=== PATIENT | male | born 1950 | race Caucasian/White ===

== ENCOUNTER 2016-10-09 08:08 | Day surgery (SDC) | payer MEDICARE, OTHER ==
[~2016-10-09 08:08] MED LIST: DIPHENHYDRAMINE HCL 50 MG/ML VIAL ONE; EPINEPHRINE INJ 1 MG/10 ML DISP.SYRIN ONE; FLUMAZENIL INJ 0.5 MG/5 ML VIAL IV ONE; GLUCAGON,HUMAN RECOMB 1 MG INJ ONE; NALOXONE HCL INJ/PF 0.4 MG/1 ML SDV ONE; ONDANSETRON HCL INJ/PF 4 MG/2 ML SDV ONE
[2016-10-09] MEDS: MIDAZOLAM 2 MG/2 ML INJ ONE ×4 (08:27→08:40)
[2016-10-09] MEDS: FENTANYL CITRATE INJ/PF 100 MCG/2 ML AMPUL ONE ×2 (08:29→08:38)
--- NOTE | 2016-10-09 09:03 | Operative Report ---
Operative Report DATE OF SURGERY: 10/09/16 Operative Report: The risks, benefits and alternatives of the procedure including risks of bleeding, perforation requiring surgery are explained to the patient detail and informed consent is obtained. Patient was taken to the endoscopy suite and placed in a left, lateral decubital position. A rectal examination was done which did not reveal any masses tears or fissures. Timeout is called. Conscious sedation medications are provided. The scope was then gradually advanced all the way to the cecum. The cecum as identified by the usual anatomical landmarks including the ileocecal valve as well as the appendiceal office. Photodocumentation was obtained. The scope was then sequentially pulled back via the rest segments of the colon including the ascending colon, hepatic flexure, transverse colon, splenic flexure, descending colon and finally into the rectosigmoid colon. Retroflexion maneuvers performed. There is some redundancy,/possible hernia in the area of the splenic flexure that required the application of abdominal pressure to advance the scope to the right side of the colon. PREOPERATIVE DIAGNOSIS: Colorectal cancer screening. POSTOPERATIVE DIAGNOSIS: Polyp at hepatic flexure removed via snare polypectomy. Diverticulosis. Internal hemorrhoids. Possible lipoma OPERATION: Colonoscopy with snare polypectomy SURGEON: MONICA JENKINS ANESTHESIA: Moderate Sedation - 5 mg of Versed, 75 g of fentanyl. Conscious sedation monitoring time is 30 minutes. TISSUE REMOVED OR ALTERED: Colon polyp retrieved. COMPLICATIONS: None. ESTIMATED BLOOD LOSS: none. INTRAOPERATIVE FINDINGS: As noted above. PROCEDURE: Patient tolerated the procedure well. No immediate postprocedure complications are noted. Patient is discharged in good condition. Discharge date 10/09/2016. Discharge diet: Regular. Discharge activity: Regular. 2-3 week follow-up to discuss findings. Patient is instructed to call the office should there be any further problems or questions. Five-year surveillance colonoscopy. We'll await on biopsies.
[2016-10-09 09:56] VITALS: BP 125/73
== END 2016-10-09 09:55 | disposition home or self-care (01) ==
LOC: END 08:08
PROVIDERS: ATTEND Internal Medicine Gastroenterology
PROC: 0DBK8ZX Excision of Ascending Colon, Via Natural or Artificial Opening Endoscopic, Diagnostic (ICD-10-PCS; principal; 2016-10-09 08:30)
DX: Z12.11 Encounter for screening for malignant neoplasm of colon (principal); K63.5 Polyp of colon; K57.30 Diverticulosis of large intestine without perforation or abscess without bleeding; K64.8 Other hemorrhoids; I10 Essential (primary) hypertension; G40.909 Epilepsy, unspecified, not intractable, without status epilepticus; E78.5 Hyperlipidemia, unspecified; Z86.73 Personal history of transient ischemic attack (TIA), and cerebral infarction without residual deficits; Z79.899 Other long term (current) drug therapy; Z79.82 Long term (current) use of aspirin
CPT/HCPCS: 45385; 88305 ×2; J2250; J3010; J0171; J1200; J1610; J2310; J2405; J3490

== ENCOUNTER → 2016-10-31 | Outpatient (CLI) | payer MEDICARE, OTHER ==
[2016-10-31 14:44] LABS: ABSOLUTE BASOPHILS # (AUTO) 0.1 10^3/uL (0.0-0.2); ABSOLUTE EOSINOPHILS # (AUTO) 0.2 10^3/uL (0.0-0.6); ABSOLUTE LYMPHOCYTES (AUTO) 2.1 10^3/uL (0.5-4.7); ABSOLUTE MONOCYTES (AUTO) 0.5 10^3/uL (0.1-1.4); ABSOLUTE NEUT (AUTO) 4.5 10^3/uL (1.7-8.2); BASOPHILS % (AUTO) 1.2 % (0-2); EOSINOPHILS % (AUTO) 3.1 % (0-6); HEMATOCRIT 36.4 % (37.9-51.0); HEMOGLOBIN 12.5 g/dL (13.5-17.0); HGB HCT DIFFERENCE 1.1; LYMPHOCYTES % (AUTO) 27.9 % (13-45); MEAN CORPUSCULAR HEMOGLOBIN 30.1 pg (27.0-33.4); MEAN CORPUSCULAR HGB CONC 34.5 g/dL (32.0-36.0); MEAN CORPUSCULAR VOLUME 87 fl (80-97); MONOCYTES % (AUTO) 6.9 % (3-13); RED BLOOD COUNT 4.17 10^6/uL (4.35-5.55); RED CELL DISTRIBUTION WIDTH 13.5 % (11.5-14.0); SEGMENTED NEUTROPHILS % (AUTO) 60.9 % (42-78); WHITE BLOOD COUNT 7.4 10^3/uL (4.0-10.5)
[2016-10-31 14:45] LABS: PROTHROMBIN TIME 13.5 SEC (11.4-15.4)
[2016-10-31 14:46] LABS: PARTIAL THROMBOPLASTIN TIME 32.3 SEC (23.5-35.8)
[2016-10-31 15:09] LABS: ANION GAP 13 (5-19); BLOOD UREA NITROGEN 13 mg/dL (7-20); CARBON DIOXIDE 23 mmol/L (22-30); CHLORIDE 104 mmol/L (98-107); CREATININE RESULT 0.82 mg/dL (0.52-1.25); GLUCOSE 112 mg/dL (75-110); MAGNESIUM 1.7 mg/dL (1.6-2.3); POTASSIUM 3.9 mmol/L (3.6-5.0); SODIUM 139.5 mmol/L (137-145)
== END ==
LOC: OD 13:47
PROVIDERS: ATTEND Internal Medicine
DX: R07.2 Precordial pain (principal); I10 Essential (primary) hypertension; E78.4 Other hyperlipidemia; Z79.899 Other long term (current) drug therapy; I05.9 Rheumatic mitral valve disease, unspecified; G40.909 Epilepsy, unspecified, not intractable, without status epilepticus
CPT/HCPCS: 36415; 80051; 82565; 82947; 83735; 84520; 85025; 85610; 85730

== ENCOUNTER → 2017-05-12 | Outpatient (CLI) | payer MEDICARE, OTHER ==
[2017-05-12 10:41] LABS: ABSOLUTE EOSINOPHILS # (AUTO) 0.3 10^3/uL (0.0-0.6); ABSOLUTE LYMPHOCYTES (AUTO) 1.8 10^3/uL (0.5-4.7); ABSOLUTE MONOCYTES (AUTO) 0.4 10^3/uL (0.1-1.4); ABSOLUTE NEUT (AUTO) 4.3 10^3/uL (1.7-8.2); BASOPHILS % (AUTO) 0.7 % (0-2); HEMATOCRIT 39.4 % (37.9-51.0); HEMOGLOBIN 13.5 g/dL (13.5-17.0); MEAN CORPUSCULAR HEMOGLOBIN 29.1 pg (27.0-33.4); MEAN CORPUSCULAR HGB CONC 34.3 g/dL (32.0-36.0); MEAN CORPUSCULAR VOLUME 85 fl (80-97); MONOCYTES % (AUTO) 6.3 % (3-13); PLATELET COUNT 228 10^3/uL (150-450); RED BLOOD COUNT 4.64 10^6/uL (4.35-5.55); RED CELL DISTRIBUTION WIDTH 13.3 % (11.5-14.0); TOTAL CELLS COUNTED % (AUTO) 100 %; WHITE BLOOD COUNT 6.8 10^3/uL (4.0-10.5)
[2017-05-12 11:16] LABS: ALANINE AMINOTRANSFERASE 30 U/L (21-72); ALBUMIN 4.1 g/dL (3.5-5.0); ALKALINE PHOSPHATASE 98 U/L (38-126); ANION GAP 11 (5-19); ASPARTATE AMINO TRANSFERASE 29 U/L (17-59); BILIRUBIN,DIRECT 0.4 mg/dL (0.0-0.4); BILIRUBIN,TOTAL 0.9 mg/dL (0.2-1.3); BLOOD UREA NITROGEN 11 mg/dL (7-20); CALCIUM 9.4 mg/dL (8.4-10.2); CARBON DIOXIDE 29 mmol/L (22-30); CHLORIDE 103 mmol/L (98-107); CHOLESTEROL 155.56 mg/dL (0-200); GLUCOSE 116 mg/dL (75-110); POTASSIUM 4.6 mmol/L (3.6-5.0); SODIUM 142.6 mmol/L (137-145); TOTAL PROTEIN 6.6 g/dL (6.3-8.2); TRIGLYCERIDES 123 mg/dL (<150)
[2017-05-12 11:26] LABS: DIRECT LDL 88 mg/dL (<100)
== END ==
LOC: OD 09:44
PROVIDERS: ATTEND Family Medicine Geriatric Medicine
DX: I10 Essential (primary) hypertension (principal); E78.5 Hyperlipidemia, unspecified; G40.909 Epilepsy, unspecified, not intractable, without status epilepticus; I25.10 Atherosclerotic heart disease of native coronary artery without angina pectoris; I63.9 Cerebral infarction, unspecified; R73.9 Hyperglycemia, unspecified; Z79.899 Other long term (current) drug therapy
CPT/HCPCS: 36415; 80053; 80061; 84153; 84443; 85025

== ENCOUNTER → 2017-07-18 | Outpatient (CLI) | payer MEDICARE, OTHER ==
--- NOTE | 2017-07-18 10:18 | RADIOLOGY REPORT (SQ) ---
EXAM DESCRIPTION: CHEST PA/LATERAL COMPLETED DATE/TIME: 07/18/2017 9:18 am REASON FOR STUDY: COUGH COMPARISON: 08/16/2015 EXAM PARAMETERS: NUMBER OF VIEWS: two views TECHNIQUE: Digital Frontal and Lateral radiographic views of the chest acquired. RADIATION DOSE: NA LIMITATIONS: none FINDINGS: LUNGS AND PLEURA: No opacities, masses or pneumothorax. No pleural effusion. MEDIASTINUM AND HILAR STRUCTURES: No masses or contour abnormalities. HEART AND VASCULAR STRUCTURES: Heart normal size. No evidence for failure. BONES: No acute findings. HARDWARE: None in the chest. OTHER: No other significant finding. IMPRESSION: NO SIGNIFICANT RADIOGRAPHIC FINDING IN THE CHEST. TECHNICAL DOCUMENTATION: JOB ID: [id number] [employer]- All Rights Reserved
== END ==
LOC: OD 08:37
PROVIDERS: ATTEND Family Medicine Geriatric Medicine
DX: I10 Essential (primary) hypertension (principal); R05 Cough; E78.5 Hyperlipidemia, unspecified; R73.9 Hyperglycemia, unspecified; Z79.899 Other long term (current) drug therapy
CPT/HCPCS: 36415; 71046; 82947; 82950; 83036

== ENCOUNTER → 2017-09-03 | Outpatient (CLI) | payer MEDICARE, OTHER ==
[2017-09-03 09:01] LABS: ALANINE AMINOTRANSFERASE 32 U/L (21-72); ANION GAP 8 (5-19); ASPARTATE AMINO TRANSFERASE 29 U/L (17-59); BLOOD UREA NITROGEN 14 mg/dL (7-20); CALCIUM 9.5 mg/dL (8.4-10.2); CARBON DIOXIDE 30 mmol/L (22-30); CHLORIDE 102 mmol/L (98-107); CHOLESTEROL 125.97 mg/dL (0-200); GLUCOSE 122 mg/dL (75-110); POTASSIUM 5.1 mmol/L (3.6-5.0); SODIUM 140.3 mmol/L (137-145); TRIGLYCERIDES 130 mg/dL (<150)
[2017-09-03 09:12] LABS: DIRECT LDL 65 mg/dL (<100)
[2017-09-04 11:40] LABS: CREATININE URINE 193.9 mg/dL (Not Estab.)
== END ==
LOC: OD 07:22
PROVIDERS: ATTEND Family Medicine Geriatric Medicine
DX: E11.9 Type 2 diabetes mellitus without complications (principal); E78.5 Hyperlipidemia, unspecified; I10 Essential (primary) hypertension; Z79.899 Other long term (current) drug therapy
CPT/HCPCS: 36415; 80048; 80061; 82043; 82570; 83036; 84450; 84460

== ENCOUNTER → 2017-09-08 | Outpatient (CLI) | payer MEDICARE, OTHER | LOC: OD 09:53 | PROVIDERS: ATTEND Family Medicine Geriatric Medicine | DX: E87.5 Hyperkalemia (principal) | CPT/HCPCS: 36415; 84132 ==

== ENCOUNTER → 2017-11-14 | Outpatient (CLI) | payer MEDICARE, OTHER ==
--- NOTE | 2017-11-14 12:11 | WOMENS IMAGING REPORT ---
EXAM DESCRIPTION: BILAT DIAGNOSTIC MAMMO W/CAD; U/S BREAST UNILAT LIMITED COMPLETED DATE/TIME: 11/14/2017 9:56 am; 11/14/2017 11:36 am REASON FOR STUDY: HYPERTROPHY OF BREAST; N62; LT BREAST N62 N62 HYPERTROPHY OF BREAST COMPARISON: None. TECHNIQUE: Standard craniocaudal and mediolateral oblique views of each breast recorded using digita l acquisition. Additional true lateral image of the left breast acquired. LIMITATIONS: None. FINDINGS: RIGHT BREAST MASSES: No suspicious masses. CALCIFICATIONS: No new or suspicious calcifications. ARCHITECTURAL DISTORTION: None. DEVELOPING DENSITY: None. ASYMMETRY: None noted. OTHER: No other significant findings. LEFT BREAST MASSES: No suspicious masses. CALCIFICATIONS: No new or suspicious calcifications. ARCHITECTURAL DISTORTION: None. DEVELOPING DENSITY: None. ASYMMETRY: Asymmetric parenchyma in the retroareolar breast. OTHER: No other significant finding. Read with the assistance of CAD: .[facility] - R2 Cenova Version 1.3 .[facility] Imaging - R2 Cenova Version 1.3 .[facility] Imaging - R2 Cenova Version 2.4 .[facility] - R2 Cenova Version 2.4 .[facility] - R2 Hematologist Oncologist Version 9.2 BREAST ULTRASOUND: TECHNIQUE: Static and dynamic grayscale images acquired of the left breast in the specific areas of c linical/mammographic concern. Selected color Doppler images recorded. ELASTOGRAPHY PERFORMED: No. LIMITATIONS: None. FINDINGS: MASS: No mass identified. Retroareolar glandular tissue. ELASTOGRAPHY CHARACTERISTICS: Not applicable. OTHER: No other significant finding. IMPRESSION: Unilateral gynecomastia in the left breast. No clear-cut mammographic or sonographic fi ndings to indicate malignancy. BREAST DENSITY: a. The breasts are almost entirely fatty. BIRAD: 2 Benign findings. RECOMMENDATION: RECOMMENDED FOLLOW UP: Follow-up as clinically indicated. If the patient has a susp icious clinical exam, biopsy of the retroareolar left breast may be considered. SPECIFIC INTERVENTION/IMAGING/CONSULTATION RECOMMENDED:No additional intervention/ imaging/consultati on needed at this time. COMMUNICATION:The imaging findings were not discussed with the patient. His referring provider has be en notified of the findings. COMMENT: The patient has been notified of the results by letter per MQSA requirements. Additional no tification policies are in place for contacting patient with suspicious or incomplete findings. Quality ID #225: The [employer] recommends an annual screening mammogram for women aged 40 years or over. This facility utilizes a reminder system to ensure that all patients receive reminder letters, and/or direct phone calls for appointments. This includes reminders for routine scr eening mammograms, diagnostic mammograms, or other Breast Imaging Interventions when appropriate. Th is patient will be placed in the appropriate reminder system. The [employer] (ACR) has developed recommendations for screening MRI of the breast s in certain patient populations, to be used in conjunction with mammography. Breast MRI surveillanc e may be appropriate for women with more than 20% lifetime risk of developing breast cancer as deter mined by genetic testing, significant family history of the disease, or history of mantle radiation f or Hodgkins Disease. ACR Practice Guidelines 2008. TECHNICAL DOCUMENTATION: FINDING NUMBER: (1) ASSESSMENT: (1) JOB ID: [id number] [employer]- All Rights Reserved Reading location - IP/workstation name: [email or web address]
--- NOTE | 2017-11-14 12:11 | WOMENS IMAGING REPORT ---
EXAM DESCRIPTION: BILAT DIAGNOSTIC MAMMO W/CAD; U/S BREAST UNILAT LIMITED COMPLETED DATE/TIME: 11/14/2017 9:56 am; 11/14/2017 11:36 am REASON FOR STUDY: HYPERTROPHY OF BREAST; N62; LT BREAST N62 N62 HYPERTROPHY OF BREAST COMPARISON: None. TECHNIQUE: Standard craniocaudal and mediolateral oblique views of each breast recorded using digita l acquisition. Additional true lateral image of the left breast acquired. LIMITATIONS: None. FINDINGS: RIGHT BREAST MASSES: No suspicious masses. CALCIFICATIONS: No new or suspicious calcifications. ARCHITECTURAL DISTORTION: None. DEVELOPING DENSITY: None. ASYMMETRY: None noted. OTHER: No other significant findings. LEFT BREAST MASSES: No suspicious masses. CALCIFICATIONS: No new or suspicious calcifications. ARCHITECTURAL DISTORTION: None. DEVELOPING DENSITY: None. ASYMMETRY: Asymmetric parenchyma in the retroareolar breast. OTHER: No other significant finding. Read with the assistance of CAD: .[facility] - R2 Cenova Version 1.3 .[facility] Imaging - R2 Cenova Version 1.3 .[facility] Imaging - R2 Cenova Version 2.4 .[facility] - R2 Cenova Version 2.4 .[facility] - R2 Livestock Farmworker Version 9.2 BREAST ULTRASOUND: TECHNIQUE: Static and dynamic grayscale images acquired of the left breast in the specific areas of c linical/mammographic concern. Selected color Doppler images recorded. ELASTOGRAPHY PERFORMED: No. LIMITATIONS: None. FINDINGS: MASS: No mass identified. Retroareolar glandular tissue. ELASTOGRAPHY CHARACTERISTICS: Not applicable. OTHER: No other significant finding. IMPRESSION: Unilateral gynecomastia in the left breast. No clear-cut mammographic or sonographic fi ndings to indicate malignancy. BREAST DENSITY: a. The breasts are almost entirely fatty. BIRAD: 2 Benign findings. RECOMMENDATION: RECOMMENDED FOLLOW UP: Follow-up as clinically indicated. If the patient has a susp icious clinical exam, biopsy of the retroareolar left breast may be considered. SPECIFIC INTERVENTION/IMAGING/CONSULTATION RECOMMENDED:No additional intervention/ imaging/consultati on needed at this time. COMMUNICATION:The imaging findings were not discussed with the patient. His referring provider has be en notified of the findings. COMMENT: The patient has been notified of the results by letter per MQSA requirements. Additional no tification policies are in place for contacting patient with suspicious or incomplete findings. Quality ID #225: The [employer] recommends an annual screening mammogram for women aged 40 years or over. This facility utilizes a reminder system to ensure that all patients receive reminder letters, and/or direct phone calls for appointments. This includes reminders for routine scr eening mammograms, diagnostic mammograms, or other Breast Imaging Interventions when appropriate. Th is patient will be placed in the appropriate reminder system. The [employer] (ACR) has developed recommendations for screening MRI of the breast s in certain patient populations, to be used in conjunction with mammography. Breast MRI surveillanc e may be appropriate for women with more than 20% lifetime risk of developing breast cancer as deter mined by genetic testing, significant family history of the disease, or history of mantle radiation f or Hodgkins Disease. ACR Practice Guidelines 2008. TECHNICAL DOCUMENTATION: FINDING NUMBER: (1) ASSESSMENT: (1) JOB ID: [id number] [employer]- All Rights Reserved Reading location - IP/workstation name: [email or web address]
== END ==
LOC: WI 08:59
PROVIDERS: ATTEND Family Medicine Geriatric Medicine
DX: N62 Hypertrophy of breast (principal)
CPT/HCPCS: 76642; 77066

== ENCOUNTER → 2017-12-01 | Outpatient (CLI) | payer MEDICARE, OTHER ==
[2017-12-01 10:46] LABS: ANION GAP 12 (5-19); BLOOD UREA NITROGEN 10 mg/dL (7-20); CALCIUM 9.6 mg/dL (8.4-10.2); CARBON DIOXIDE 29 mmol/L (22-30); CHLORIDE 104 mmol/L (98-107); GLUCOSE 91 mg/dL (75-110); POTASSIUM 4.3 mmol/L (3.6-5.0); SODIUM 144.6 mmol/L (137-145)
== END ==
LOC: OD 09:07
PROVIDERS: ATTEND Family Medicine Geriatric Medicine
DX: E11.9 Type 2 diabetes mellitus without complications (principal); I10 Essential (primary) hypertension; E66.9 Obesity, unspecified; Z79.899 Other long term (current) drug therapy
CPT/HCPCS: 36415; 80048

== ENCOUNTER → 2017-12-12 | Outpatient (CLI) | payer MEDICARE, OTHER ==
[2017-12-12 10:41] LABS: FREE T3 3.66 pg/mL (2.77-5.27); FREE T4 (FREE THYROXINE) 1.03 ng/dL (0.78-2.19)
[2017-12-12 10:54] LABS: THYROID STIMULATING HORMONE 0.65 uIU/mL (0.47-4.68)
[2017-12-14 06:14] LABS: AFP SERUM TUMOR MARKER 4.6 ng/mL (0.0-8.3); DEHYDROEPIANDROSTERONE SULFATE 26.8 ug/dL (30.9-295.6); TESTOSTERONE FREE (DIRECT) 1.6 pg/mL (6.6-18.1)
== END ==
LOC: OD 08:59
PROVIDERS: ATTEND Surgery
DX: N62 Hypertrophy of breast (principal)
CPT/HCPCS: 36415; 82105; 82627; 82670; 83001; 83002; 84146; 84402; 84439; 84443; 84481; 84702

== ENCOUNTER 2018-01-17 19:04 | Emergency (ER) | payer MEDICARE, OTHER ==
[2018-01-17] MEDS ORDERED: NORMAL SALINE 1000 ML 500 ML IV ONE (19:25)
--- NOTE | 2018-01-17 19:27 | ER Document Report ---
ED General - General Chief Complaint: Seizure Stated Complaint: POSSIBLE SEIZURE Time Seen by Provider: 01/17/18 19:17 Notes: Patient is a 67-year-old male with a past medical history of prior CVA, hypertension, seizure disorder, last seizure approximately 2 years ago who presents after having witnessed generalized tonic-clonic episode lasting approximately 3-5 minutes. He apparently had a associated postictal phase and was somewhat combative during that time. EMS was contacted and transported the patient to the hospital. The patient reports that he has been compliant with his Keppra, no missed doses. No recent dosing adjustments. The patient denies any preceding symptoms prior to the onset of the seizure activity today and states that he has been feeling quite well for the past several days. He states that he did bite his tongue during the seizure episode today and notes a dull, constant, aching pain to the area of the tongue. Nothing improves or worsens that discomfort. He denies any current headache, focal weakness or numbness. TRAVEL OUTSIDE OF THE [place] IN LAST 30 DAYS: No - Related Data Allergies/Adverse Reactions: Penicillins Allergy (Intermediate, Verified 10/09/16 08:00) rash Past Medical History - General Information source: Patient - Social History Smoking Status: Never Smoker Frequency of alcohol use: None Drug Abuse: None Lives with: Spouse/Significant other Family History: Reviewed & Not Pertinent - Past Medical History Cardiac Medical History: Reports: Hx Coronary Artery Disease - AWAITING RESULTS OF STRESS TEST HE HAD ON , Hx Hypercholesterolemia - meds x 9 years, Hx Hypertension, Hx Heart Murmur - as /child only Denies: Hx Atrial Fibrillation, Hx Congestive Heart Failure, Hx Heart Attack , Hx Peripheral Vascular Disease Pulmonary Medical History: Denies: Hx Asthma, Hx Bronchitis, Hx COPD, Hx Pneumonia Neurological Medical History: Reports: Hx Cerebrovascular Accident - 11 YRS AGO , Hx Seizures - STARTED AFTER STROKE - last 08/2015 Renal/ Medical History: Reports: Hx Benign Prostatic Hyperplasia - nocturia x 3-4/night. Denies: Hx End Stage Renal Disease, Hx Kidney Stones, Hx Peritoneal Dialysis Malignancy Medical History: Denies Hx Leukemia GI Medical History: Denies: Hx Crohn's Disease, Hx Gastroesophageal Reflux Disease, Hx Hiatal Hernia, Hx Irritable Bowel, Hx Liver Failure, Hx Pancreatitis , Hx Ulcer Musculoskeletal Medical History: Reports Hx Arthritis - LEFT KNEE REPLACEMENT, R KNEE ARTHRITIS STILL, Denies Hx Fibromyalgia, Denies Hx Multiple Sclerosis, Denies Hx Muscular Dystrophy Psychiatric Medical History: Reports: Hx Depression - meds x 5 months Denies: Hx Bipolar Disorder, Hx Dementia, Hx Post Traumatic Stress Disorder, Hx Schizophrenia Traumatic Medical History: Denies: Hx Fractures Infectious Medical History: Denies: Hx HIV Past Surgical History: Reports: Hx Cholecystectomy - lap cholecystectomy 2008, Hx Herniorrhaphy - umbilical and RT ing herniorrhaphy. Denies: Hx Appendectomy , Hx Bowel Surgery, Hx Colostomy, Hx Coronary Artery Bypass Graft, Hx Gastric Bypass Surgery, Hx Pacemaker, Hx Tonsillectomy - Immunizations Hx Diphtheria, Pertussis, Tetanus Vaccination: Yes - UNSURE OF DATE Hx Pneumococcal Vaccination: 03/02/13 Review of Systems - Review of Systems Notes: Constitutional: Negative for fever. HENT: Negative for sore throat. Eyes: Negative for visual changes. Cardiovascular: Negative for chest pain. Respiratory: Negative for shortness of breath. Gastrointestinal: Negative for abdominal pain, vomiting or diarrhea. Genitourinary: Negative for dysuria. Musculoskeletal: Negative for back pain. Skin: Negative for rash. Neurological: Positive for a seizure 10 point ROS negative except as marked above and in HPI. Physical Exam - Vital signs Vitals: Resp 10 L 01/17/18 19:08 Interpretation: Normal Notes: PHYSICAL EXAMINATION: GENERAL: Well-appearing, well-nourished and in no acute distress. HEAD: Atraumatic, normocephalic. EYES: Pupils equal round and reactive to light, extraocular movements intact, sclera anicteric, conjunctiva are normal. ENT: nares patent, oropharynx clear without exudates. Moist mucous membranes. NECK: Normal range of motion, supple without lymphadenopathy LUNGS: Breath sounds clear to auscultation bilaterally and equal. No wheezes rales or rhonchi. HEART: Regular rate and rhythm without murmurs ABDOMEN: Soft, nontender, normoactive bowel sounds. No guarding, no rebound. No masses appreciated. EXTREMITIES: Normal range of motion, no pitting or edema. No cyanosis. NEUROLOGICAL: Face symmetric. Tongue protrudes midline. Extraocular motions intact. Pupils are 2 mm and equally reactive. Normal speech, normal gait. 5 out of 5 strength in both the distal and proximal upper and lower extremities bilaterally. Sensation is grossly intact throughout. Finger to nose testing normal. Pronator drift normal. PSYCH: Normal mood, normal affect. SKIN: Warm, Dry, normal turgor, no rashes or lesions noted. Course - Re-evaluation Re-evalutation: 01/17/18 19:26 Presentation of well-appearing patient after having a seizure. Patient has a known history of seizures. No obvious trigger for today's episode. The patient has returned to baseline without intervention. No focal neurologic deficits. No infectious symptoms or evidence of trauma. Patient did have borderline hypoxia at 92-93%. A chest x-ray was therefore obtained to evaluate for any evidence of aspiration that could have occurred during his seizure event and is noted to be unremarkable. No indication for laboratories based on reassuring evaluation and known history of seizures. The patient will be discharged home with recommendations for close follow-up with primary care as well as their neurologist. Return precautions have been reviewed and patient has verbalized understanding. - Vital Signs Vital signs: Temp Pulse Resp BP Pulse Ox 26 H 158/97 H 94 01/17/18 20:01 01/17/18 20:01 01/17/18 20:01 Discharge - Discharge Clinical Impression: Seizure Tongue laceration Qualifiers: Encounter type: initial encounter Qualified Code(s): S01.512A - Laceration without foreign body of oral cavity, initial encounter Condition: Good Disposition: HOME, SELF-CARE Additional Instructions: Today you had a seizure. It is very important that you do not engage in any activities that could result in severe injury should you have a seizure. Specifically, do not drive a vehicle, go into a body of water, take a bath, climb ladders, or operate any heavy machinery until you have been cleared by your neurologist. Please return to the ED immediately if you have multiple seizures close together, develop a severe headache, weakness, numbness, difficulty speaking, have a seizure in which you do not return to normal within 1 hour of the seizure, or have any other symptoms that are concerning to you. Referrals: CODEY RICKS MD [ACTIVE STAFF] - Follow up as needed
--- NOTE | 2018-01-17 20:04 | RADIOLOGY REPORT (SQ) ---
EXAM DESCRIPTION: CHEST SINGLE VIEW COMPLETED DATE/TIME: 01/17/2018 7:55 pm REASON FOR STUDY: boarderline hypoxia COMPARISON: 07/18/2017 EXAM PARAMETERS: NUMBER OF VIEWS: One view. TECHNIQUE: Single frontal radiographic view of the chest acquired. RADIATION DOSE: NA LIMITATIONS: None. FINDINGS: LUNGS AND PLEURA: No opacities, masses or pneumothorax. No pleural effusion. MEDIASTINUM AND HILAR STRUCTURES: No masses. Contour normal. HEART AND VASCULAR STRUCTURES: Heart normal in size. Normal vasculature. BONES: No acute findings. HARDWARE: None in the chest. OTHER: No other significant finding. IMPRESSION: NO ACUTE RADIOGRAPHIC FINDING IN THE CHEST. TECHNICAL DOCUMENTATION: JOB ID: [id number] [employer]- All Rights Reserved Reading location - IP/workstation name: [email or web address]
[2018-01-17 20:18] VITALS: BP 158/97
== END 2018-01-17 21:11 | disposition home or self-care (01) ==
LOC: ER 19:04
DX: G40.909 Epilepsy, unspecified, not intractable, without status epilepticus (principal); Z79.899 Other long term (current) drug therapy; S01.552A Open bite of oral cavity, initial encounter; W50.3XXA Accidental bite by another person, initial encounter; Y93.89 Activity, other specified; I25.10 Atherosclerotic heart disease of native coronary artery without angina pectoris; I10 Essential (primary) hypertension; Z88.0 Allergy status to penicillin
CPT/HCPCS: 99284; 96360; 71045; J7030

== ENCOUNTER → 2018-01-22 | Outpatient (CLI) | payer MEDICARE, OTHER ==
[2018-01-22 10:29] LABS: ALANINE AMINOTRANSFERASE 74 U/L (21-72); ALBUMIN 4.3 g/dL (3.5-5.0); ALKALINE PHOSPHATASE 100 U/L (38-126); ANION GAP 11 (5-19); ASPARTATE AMINO TRANSFERASE 112 U/L (17-59); BILIRUBIN,DIRECT 0.2 mg/dL (0.0-0.4); BILIRUBIN,TOTAL 1.1 mg/dL (0.2-1.3); BLOOD UREA NITROGEN 13 mg/dL (7-20); CALCIUM 9.9 mg/dL (8.4-10.2); CARBON DIOXIDE 28 mmol/L (22-30); CHLORIDE 104 mmol/L (98-107); GLUCOSE 108 mg/dL (75-110); POTASSIUM 4.6 mmol/L (3.6-5.0); SODIUM 143.3 mmol/L (137-145); TOTAL PROTEIN 7.1 g/dL (6.3-8.2)
== END ==
LOC: OD 09:06
PROVIDERS: ATTEND Internal Medicine
DX: I25.110 Atherosclerotic heart disease of native coronary artery with unstable angina pectoris (principal); E11.8 Type 2 diabetes mellitus with unspecified complications; N40.0 Benign prostatic hyperplasia without lower urinary tract symptoms; E05.90 Thyrotoxicosis, unspecified without thyrotoxic crisis or storm
CPT/HCPCS: 36415; 80053; 84443

== ENCOUNTER → 2018-01-27 | Outpatient (CLI) | payer MEDICARE, OTHER ==
--- NOTE | 2018-01-27 14:38 | RADIOLOGY REPORT (SQ) ---
EXAM DESCRIPTION: MRI HEAD WITHOUT COMPLETED DATE/TIME: 01/27/2018 12:45 pm REASON FOR STUDY: CEREBRAL INFARCTION, UNSPECIFIED I63.9 CEREBRAL INFARCTION, UNSPECIFIED COMPARISON: 01/12/2014 TECHNIQUE: Multiplanar imaging includes non-contrasted T1, T2, FLAIR, and diffusion with ADC map seq uences. Images stored on PACS. LIMITATIONS: None. FINDINGS: ANATOMY: No anomalies. Normal vascular flow voids. Pituitary fossa normal. CSF SPACES: Atrophy induced prominence of ventricles and CSF spaces. CEREBRUM: High signal intensity lesions scattered throughout the white matter on FLAIR imaging with d istribution suggesting micro-vascular ischemic changes. No evidence of hemorrhage, mass, or extraaxi al fluid collection. Focal left posterior cerebral artery infarct is again noted and unchanged. POSTERIOR FOSSA: No signal alteration. No hemorrhage. No edema, masses or mass effect. Internal grace tory canals, cerebello-pontine angles, mastoids normal. DIFFUSION IMAGING: Negative for acute or sub-acute infarction. ORBITS: No masses. Globes normal. PARANASAL SINUSES: No fluid levels. Mucosa normal. OTHER: No other significant finding. IMPRESSION: 1. Stable old left [employer] infarct. 2. Fairly diffuse small vessel ischemic changes. No acute intracranial event. EVIDENCE OF ACUTE STROKE: NO. TECHNICAL DOCUMENTATION: JOB ID: [id number] [employer]- All Rights Reserved Reading location - IP/workstation name: [email or web address]
== END ==
LOC: RAD 11:39
PROVIDERS: ATTEND Internal Medicine
DX: I63.9 Cerebral infarction, unspecified (principal)
CPT/HCPCS: 70551

== ENCOUNTER → 2018-02-26 | Outpatient (CLI) | payer MEDICARE, OTHER ==
[2018-02-26 13:44] LABS: ALANINE AMINOTRANSFERASE 33 U/L (21-72); ALBUMIN 4.3 g/dL (3.5-5.0); ALKALINE PHOSPHATASE 100 U/L (38-126); ANION GAP 11 (5-19); ASPARTATE AMINO TRANSFERASE 26 U/L (17-59); BILIRUBIN,DIRECT 0.3 mg/dL (0.0-0.4); BILIRUBIN,TOTAL 0.9 mg/dL (0.2-1.3); BLOOD UREA NITROGEN 11 mg/dL (7-20); CALCIUM 10.1 mg/dL (8.4-10.2); CARBON DIOXIDE 29 mmol/L (22-30); CHLORIDE 101 mmol/L (98-107); GLUCOSE 84 mg/dL (75-110); POTASSIUM 3.8 mmol/L (3.6-5.0); SODIUM 141.4 mmol/L (137-145); TOTAL PROTEIN 7.1 g/dL (6.3-8.2)
--- NOTE | 2018-02-26 14:59 | RADIOLOGY REPORT (SQ) ---
EXAM DESCRIPTION: ANKLE RIGHT COMPLETE COMPLETED DATE/TIME: 02/26/2018 2:50 pm REASON FOR STUDY: PAIN IN LEG, UNSPECIFIED, RT KNEE PAIN M79.606 PAIN IN LEG, UNSPECIFIED COMPARISON: None. NUMBER OF VIEWS: Three views. TECHNIQUE: AP, lateral, and oblique radiographic images acquired of the right ankle. LIMITATIONS: None. FINDINGS: MINERALIZATION: Normal. BONES: No acute fracture or dislocation. No worrisome bone lesions. JOINTS: No effusions. SOFT TISSUES: No soft tissue swelling. No foreign body. OTHER: No other significant finding. IMPRESSION: NEGATIVE STUDY OF THE RIGHT ANKLE. NO RADIOGRAPHIC EVIDENCE OF ACUTE INJURY. TECHNICAL DOCUMENTATION: JOB ID: [id number] [employer]- All Rights Reserved Reading location - IP/workstation name: [email or web address]
--- NOTE | 2018-02-26 15:02 | RADIOLOGY REPORT (SQ) ---
EXAM DESCRIPTION: FOOT RIGHT COMPLETE COMPLETED DATE/TIME: 02/26/2018 2:50 pm REASON FOR STUDY: PAIN IN LEG, UNSPECIFIED, RT KNEE PAIN M79.606 PAIN IN LEG, UNSPECIFIED COMPARISON: None. NUMBER OF VIEWS: Three views. TECHNIQUE: AP, lateral and oblique radiographic images acquired of the right foot. LIMITATIONS: None. FINDINGS: MINERALIZATION: Normal. BONES: No acute fracture or dislocation. No worrisome bone lesions. JOINTS: Mild degenerative joint changes at the 1st metatarsophalangeal joint. SOFT TISSUES: No soft tissue swelling. No foreign body. OTHER: No other significant finding. IMPRESSION: Mild degenerative joint changes. No acute abnormality. TECHNICAL DOCUMENTATION: JOB ID: [id number] [employer]- All Rights Reserved Reading location - IP/workstation name: [email or web address]
--- NOTE | 2018-02-26 15:02 | RADIOLOGY REPORT (SQ) ---
EXAM DESCRIPTION: TIBIA FIBULA RIGHT COMPLETED DATE/TIME: 02/26/2018 2:50 pm REASON FOR STUDY: PAIN IN LEG, UNSPECIFIED, RT KNEE PAIN M79.606 PAIN IN LEG, UNSPECIFIED COMPARISON: None. NUMBER OF VIEWS: Two views. TECHNIQUE: Two radiographic images acquired of the right tibia and fibula to include the knee and an kle in at least one projection. LIMITATIONS: None. FINDINGS: MINERALIZATION: Normal. BONES: No acute fracture or dislocation. No worrisome bone lesions. SOFT TISSUES: There is diffuse soft tissue edema. OTHER: No other significant finding. IMPRESSION: NEGATIVE STUDY OF THE RIGHT TIBIA AND FIBULA. NO RADIOGRAPHIC EVIDENCE OF ACUTE INJURY. TECHNICAL DOCUMENTATION: JOB ID: [id number] [email or web address]- All Rights Reserved Reading location - IP/workstation name: [email or web address]
--- NOTE | 2018-02-26 15:03 | RADIOLOGY REPORT (SQ) ---
EXAM DESCRIPTION: KNEE RIGHT 4 VIEWS COMPLETED DATE/TIME: 02/26/2018 2:50 pm REASON FOR STUDY: PAIN IN LEG, UNSPECIFIED, RT KNEE PAIN M79.606 PAIN IN LEG, UNSPECIFIED COMPARISON: 05/30/2009 NUMBER OF VIEWS: Four views. TECHNIQUE: AP, lateral, and both oblique radiographic images acquired of the right knee. LIMITATIONS: None. FINDINGS: MINERALIZATION: Normal. BONES: No acute fracture or dislocation. No worrisome bone lesions. JOINT: No effusion. SOFT TISSUES: No soft tissue swelling. No radio-opaque foreign body. OTHER: No other significant finding. IMPRESSION: NEGATIVE STUDY OF THE RIGHT KNEE. NO RADIOGRAPHIC EVIDENCE OF ACUTE INJURY. TECHNICAL DOCUMENTATION: JOB ID: [id number] [employer]- All Rights Reserved Reading location - IP/workstation name: [email or web address]
== END ==
LOC: OD 12:44
PROVIDERS: ATTEND Internal Medicine
DX: M25.561 Pain in right knee (principal); R68.89 Other general symptoms and signs
CPT/HCPCS: 36415; 80053

== ENCOUNTER → 2018-03-03 | Outpatient (CLI) | payer MEDICARE, OTHER ==
--- NOTE | 2018-03-04 08:48 | EEG PRO FEE REPORT ---
EEG INTERPRETATION PATIENT NAME: OLIVE HART ROOM#: ORDER#: [id number] DATE OF STUDY: 03/03/2018 : 1950 REFERRING MD: HARPREET YOUSSEF M.D. MEDICATIONS: Keppra, Ambien, Flomax, Atorvastatin, Melatonin, Clopidogrel, Amlodipine, Sertraline, Pantoprazole, Aspirin, Nitroglycerin, Metformin, Lidocaine, Diclofenac, Fluticasone, Sulfamethoxazole History This is a 67 year old right handed man with a history of stroke, hypertension, stents. This EEG was requested for headaches. EEG Interpretation This EEG was recorded in the awake and brief drowsy states. The awake EEG is characterized by a well organized background with a well developed and reactive posterior dominant rhythm of 7.5 Hz. The remainder of the background consists of some beta activity. Drowsiness is characterized by slowing of the background rhythms. Photic stimulation resulted in no significant changes. There were no epileptiform abnormalities noted. The EKG showed a regular rhythm. EEG Classification 1. Generalized background slowing EEG Impression This EEG is abnormal. The posterior dominant rhythm is slow for age and is suggestive of diffuse cerebral dysfunction. Beta activity may be seen with certain medications. INTERPRETING PHYSICIAN: MISSY WHITAKER M.D. /: MTEFDEXTER TT: [id number] ID: [id number] /: [id number] TD: [id number] JOB: [id number] cc:Evelyn RDAFORD M.D. > MTDD
== END ==
LOC: NEURO 12:49
PROVIDERS: ATTEND Pediatrics
DX: R51 Headache (principal); I63.9 Cerebral infarction, unspecified; G40.909 Epilepsy, unspecified, not intractable, without status epilepticus
CPT/HCPCS: 95819

== ENCOUNTER 2018-03-11 07:49 | Day surgery (SDC) | payer MEDICARE, OTHER ==
[~2018-03-11 07:49] MED LIST changes: +CLINDAMYCIN 600 MG/D5W RTU 600 MG/50 ML RTUPB IV PRN; -DIPHENHYDRAMINE HCL 50 MG/ML VIAL ONE; -EPINEPHRINE INJ 1 MG/10 ML DISP.SYRIN ONE; -FLUMAZENIL INJ 0.5 MG/5 ML VIAL IV ONE; -GLUCAGON,HUMAN RECOMB 1 MG INJ ONE; -NALOXONE HCL INJ/PF 0.4 MG/1 ML SDV ONE; -ONDANSETRON HCL INJ/PF 4 MG/2 ML SDV ONE
[2018-03-11 08:37] LABS: HEMATOCRIT 37.1 % (37.9-51.0); HEMOGLOBIN 12.9 g/dL (13.5-17.0); MEAN CORPUSCULAR HEMOGLOBIN 28.8 pg (27.0-33.4); MEAN CORPUSCULAR HGB CONC 34.7 g/dL (32.0-36.0); MEAN CORPUSCULAR VOLUME 83 fl (80-97); PLATELET COUNT 278 10^3/uL (150-450); RED BLOOD COUNT 4.48 10^6/uL (4.35-5.55); RED CELL DISTRIBUTION WIDTH 13.8 % (11.5-14.0); WHITE BLOOD COUNT 6.4 10^3/uL (4.0-10.5)
[2018-03-11] MEDS ORDERED: CLINDAMYCIN 600 MG/D5W RTU 600 MG/50 ML RTUPB IV ONE (08:42)
[2018-03-11 09:20] LABS: ANION GAP 9 (5-19); BLOOD UREA NITROGEN 7 mg/dL (7-20); CALCIUM 9.3 mg/dL (8.4-10.2); CARBON DIOXIDE 25 mmol/L (22-30); CHLORIDE 105 mmol/L (98-107); GLUCOSE 129 mg/dL (75-110); SODIUM 138.8 mmol/L (137-145)
[2018-03-11] MEDS ORDERED: FENTANYL CITRATE INJ/PF 100 MCG/2 ML AMPUL IV PRN ×3 (09:51)
[2018-03-11] MEDS ORDERED: MEPERIDINE HCL/PF INJ 25 MG/1 ML DISP.SYRIN IV PRN (09:51)
[2018-03-11] MEDS ORDERED: DIPHENHYDRAMINE HCL 50 MG/ML VIAL IV PRN (09:51)
[2018-03-11] MEDS ORDERED: PROMETHAZINE HCL INJ 25 MG/1 ML VIAL IV PRN ×2 (09:51)
[2018-03-11] MEDS ORDERED: OXYCODONE-ACETAMINOPHEN 5-325 MG TABLET PO PRN ×2 (09:51)
[2018-03-11 10:05] LABS: APPEARANCE,URINE CLEAR; BILIRUBIN,URINE NEGATIVE (NEGATIVE); COLOR,URINE YELLOW; GLUCOSE, URINE NEGATIVE (NEGATIVE); KETONES,URINE NEGATIVE (NEGATIVE); LEUKOCYTE ESTERASE,URINE NEGATIVE (NEGATIVE); NITRITE,URINE NEGATIVE (NEGATIVE); PROTEIN,URINE NEGATIVE (NEGATIVE); UROBILINOGEN,URINE NEGATIVE mg/dL (<2.0)
[2018-03-11 10:09] LABS: URINE SPECIFIC GRAVITY 1.006
--- NOTE | 2018-03-11 10:12 | EKG REPORT ---
SEVERITY:- NORMAL ECG - SINUS RHYTHM : Confirmed by: Nessa Gauthier MD 11-Mar-2018 10:11:52
[2018-03-11] MEDS ORDERED: LIDOCAINE 1%/EPINEPHRINE INJ 20 ML VIAL ONE (10:22)
[2018-03-11] MEDS ORDERED: BUPIVACAINE HCL 0.5 % INJ/PF 30 ML SDV ONE (10:23)
--- NOTE | 2018-03-11 10:44 | Discharge Summary ---
Discharge Summary (SDC) - Discharge Final Diagnosis: Lemon Brenda lesion right lateral knee Date of Surgery: 03/11/18 Discharge Date: 03/11/18 Condition: Good Treatment or Instructions: Activity as tolerated Prescriptions: Hydrocodone/Acetaminophen [[place] 5-325 mg Tablet] 1 tab PO Q6 PRN #40 tablet PRN Reason: Referrals: HARDEEP MCLEAN MD [Primary Care Provider] - Discharge Diet: As Tolerated, Regular Respiratory Treatments at Home: Deep Breathing/Coughing Discharge Activity: Balance Activity w/Rest, No tub bath Home Care Assistance: None Needed Report the Following to Your Physician Immediately: Shortness of Breath, Fever over 101 Degrees, Drainage-Foul Smelling
--- NOTE | 2018-03-11 10:46 | Operative Report ---
Operative Report DATE OF SURGERY: 03/11/18 PREOPERATIVE DIAGNOSIS: Lemon Brenda lesion right lateral infrapatellar region OPERATION: Excision right lower extremity Lemon Brenda lesion SURGEON: DASHA MIRELES ANESTHESIA: LMAC TISSUE REMOVED OR ALTERED: Specimen to pathology ESTIMATED BLOOD LOSS: Minimal PROCEDURE: With the patient supine Afrin table the right lower extremity prepped and draped in sterile fashion. The skin overlying the right lateral infrapatellar lesion is infiltrated with accommodation Marcaine, Xylocaine, and epinephrine. An incision through the dermis. Upon penetrating the dermis we found ourselves in the middle of the lesion. The lesion is excised intralesionally and sent to pathology piecemeal. The wound is irrigated. Hemostasis obtained with electrocautery. The wound was reapproximated using interrupted Vicryl followed by nylon. A sterile compressive dressing is applied and the patient's return to PACU in satisfactory condition.
[2018-03-11] MEDS ORDERED: FENTANYL CITRATE INJ/PF 100 MCG/2 ML AMPUL ONE (10:55)
[2018-03-11] MEDS ORDERED: ACETAMINOPHEN 1,000 MG/100 ML RTUPB IV ONE (11:08)
[2018-03-11] MEDS ORDERED: HYDROCODONE/ACETAMINOPHEN 5-325 MG TABLET PO PRN (11:31)
[2018-03-11] MEDS ORDERED: HYDROCODONE/ACETAMINOPHEN 5-325 MG TABLET ONE (11:42)
[2018-03-11 13:34] VITALS: BP 142/86
== END 2018-03-11 13:00 | disposition home or self-care (01) ==
LOC: OROUT 07:49
PROVIDERS: ATTEND Orthopaedic Surgery
DX: S80.11XA Contusion of right lower leg, initial encounter (principal); X58.XXXA Exposure to other specified factors, initial encounter; D68.9 Coagulation defect, unspecified; I10 Essential (primary) hypertension; M19.90 Unspecified osteoarthritis, unspecified site; E11.9 Type 2 diabetes mellitus without complications; Z88.0 Allergy status to penicillin; Z88.1 Allergy status to other antibiotic agents; Z79.899 Other long term (current) drug therapy; Z79.84 Long term (current) use of oral hypoglycemic drugs
CPT/HCPCS: 36415; 85027; 80048; 81001; 88305 ×2; 93005; 93010; 27618; J3490 ×2; J3010; J0131; A9270; 400

== ENCOUNTER 2018-03-29 18:27 | Emergency (ER) | payer MEDICARE, OTHER ==
[2018-03-29] MEDS ORDERED: LORAZEPAM INJ 2 MG/1 ML VIAL IV ONE ×3 (18:46→19:21)
[2018-03-29] MEDS ORDERED: LEVETIRACETAM 1000 MG/NACL-ISO 1,000 MG/100 ML RTUPB IV ONE (18:48)
[2018-03-29] MEDS ORDERED: LORAZEPAM INJ 2 MG/1 ML VIAL ONE (18:49)
--- NOTE | 2018-03-29 18:54 | ER Document Report ---
ED General - General Mode of Arrival: Ambulatory Information source: Patient TRAVEL OUTSIDE OF THE [place] IN LAST 30 DAYS: No <LINETTE KATZ - Last Filed: 03/29/18 23:46> <FATOU MELENDEZ - Last Filed: 03/30/18 00:14> - General Stated Complaint: POSSIBLE SEIZURE Time Seen by Provider: 03/29/18 18:46 Notes: Patient is a 67-year-old male with epilepsy presenting to the emergency department via EMS due to a possible seizure. EMS states the patient had a seizure at home and fell forward and hit his head on a brick wheeler. They state that the patient is aggressive postictal and they proceeded to administer Ativan. They report an episode of fecal incontinence. Patient is actively having a seizure when approached. Patient currently takes 1500 mg of Keppra twice daily and is currently prescribed Nitro, Aspirin and Plavix. (LINETTE KATZ) - Related Data Allergies/Adverse Reactions: Penicillins Allergy (Intermediate, Verified 10/09/16 08:00) rash Past Medical History - General Information source: Patient - Social History Smoking Status: Never Smoker Cigarette use (# per day): No Chew tobacco use (# tins/day): No Smoking Education Provided: No Frequency of alcohol use: None Family History: Reviewed & Not Pertinent - Past Medical History Cardiac Medical History: Reports: Hx Coronary Artery Disease - AWAITING RESULTS OF STRESS TEST HE HAD ON , Hx Hypercholesterolemia - meds x 9 years, Hx Hypertension, Hx Heart Murmur - as /child only Neurological Medical History: Reports: Hx Cerebrovascular Accident - 11 YRS AGO , Hx Seizures - STARTED AFTER STROKE - LAST 2017 Renal/ Medical History: Reports: Hx Benign Prostatic Hyperplasia - nocturia x 3-4/night Musculoskeletal Medical History: Reports Hx Arthritis - LEFT KNEE REPLACEMENT, R KNEE ARTHRITIS STILL Psychiatric Medical History: Reports: Hx Depression - meds x 5 months Past Surgical History: Reports: Hx Cholecystectomy - lap cholecystectomy 2008, Hx Herniorrhaphy - umbilical and RT ing herniorrhaphy - Immunizations Hx Diphtheria, Pertussis, Tetanus Vaccination: Yes - UNSURE OF DATE Hx Pneumococcal Vaccination: 03/02/13 <LINETTE KATZ - Last Filed: 03/29/18 23:46> Review of Systems - Review of Systems Constitutional: No symptoms reported EENT: No symptoms reported Cardiovascular: No symptoms reported Respiratory: No symptoms reported Gastrointestinal: No symptoms reported Genitourinary: No symptoms reported Male Genitourinary: No symptoms reported Musculoskeletal: See HPI Skin: No symptoms reported Hematologic/Lymphatic: No symptoms reported Neurological/Psychological: See HPI, Seizure -: Yes All other systems reviewed and negative <STERLINGLINETTE ROMERO - Last Filed: 03/29/18 23:46> Physical Exam <STERLINGEVANGELISTAEMANUEL - Last Filed: 03/29/18 23:46> <FATOU MELENDEZ - Last Filed: 03/30/18 00:14> - Vital signs Vitals: Resp 20 03/29/18 18:35 - Notes Notes: GENERAL: Actively seizing in bed, tonic-clonic, not focal. Seizure stopped approximately 1 minute after being in the room. Fecal odor present consistent with history of fecal incontinence. HEAD: Normocephalic, curvilinear laceration to the left side of the forehead. EYES: Pupils equal, round, and reactive to light. Extraocular movements intact. ENT: Oral mucosa moist, tongue midline. Diffuse bruising across tongue, consistent with history of seizures. No active bleeding, no signs of swelling. Airway not compromised. NECK: Full range of motion. Supple. Trachea midline. LUNGS: Sonorous respirations consistent with postictal phase. Clear to auscultation bilaterally, no wheezes, rales, or rhonchi. No respiratory distress. HEART: Regular rate and rhythm. No murmurs, gallops, or rubs. ABDOMEN: Soft, non-tender. Non-distended. Bowel sounds present in all 4 quadrants. EXTREMITIES: After seizure stops, moves all 4 extremities spontaneously. No edema, radial and dorsalis pedis pulses 2/4 bilaterally. No cyanosis. SKIN: Warm, dry, normal turgor. (LINETTE KATZ) Course - Laboratory Result Diagrams: 03/29/18 19:32 03/29/18 18:36 <STERLING,TAMEMANUEL - Last Filed: 03/29/18 23:46> - Laboratory Result Diagrams: 03/29/18 19:32 03/29/18 23:21 <FATOU MELENDEZ - Last Filed: 03/30/18 00:14> - Re-evaluation Re-evalutation: 10/28/18 23:04 CBC shows leukocytosis of 14.6, likely demargination due to the seizures, hemoglobin is mildly anemic and mild anemia with hemoglobin 12.5 not significantly changed from last visit, coags are normal, CMP shows slightly elevated sodium at 146.1, potassium low at 3.2, CO2 is low at 14 and there is elevated anion gap at 28, patient has been hydrated and this will be rechecked, glucose elevated 210, lactic acid elevated at 8.7, this will again be rechecked after rehydration, this is likely due to his multiple seizures both prior to arrival and in the emergency department, patient does have elevated CK and CK- MB at 523 and 5.59 respectively, troponin is undetectable at 0.012, urinalysis shows greater than 500 glucose, trace ketones and large blood. Keppra level is pending, this is a send out and will not be back for several days. Alcohol level is less than 10. CT scan of the head does not show any signs of skull fracture or intracranial hemorrhage. Wound has been cleansed, it is non-gaping, it will be approximated using Dermabond. 03/30/18 00:09 Repeat chemistries show electrolyte abnormalities have completely resolved, CO2 is normalized, anion gap is closed, blood sugars come down nicely and lactic acid has decreased from 8.7 down to 1.8. Patient is feeling much better, family states that he is at his baseline. Patient will be discharged home, encouraged to follow-up with his neurologist sooner than his next appointment in May. (FATOU MELENDEZ) - Vital Signs Vital signs: Temp Pulse Resp BP Pulse Ox 159 H 23 H 173/67 H 97 03/29/18 18:44 03/29/18 20:00 03/29/18 18:44 03/29/18 23:00 - Laboratory Laboratory results interpreted by me: 03/29/18 03/29/18 03/29/18 18:36 19:32 19:32 WBC 14.6 H Hgb 12.5 L Hct 37.0 L Seg Neutrophils % 88.1 H Lymphocytes % 7.9 L Absolute Neutrophils 12.9 H Sodium 146.1 H Potassium 3.2 L Carbon Dioxide 14 L Anion Gap 28 H Glucose 210 H Lactic Acid 8.7 H ALT 16 L Creatine Kinase CK-MB (CK-2) Urine Protein Urine Glucose (UA) Urine Ketones Urine Blood 03/29/18 03/29/18 03/29/18 19:32 19:32 19:53 WBC Hgb Hct Seg Neutrophils % Lymphocytes % Absolute Neutrophils Sodium Potassium Carbon Dioxide Anion Gap Glucose Lactic Acid ALT Creatine Kinase 523 H CK-MB (CK-2) 5.59 H Urine Protein 30 H Urine Glucose (UA) >=500 H Urine Ketones TRACE H Urine Blood LARGE H 03/29/18 23:21 WBC Hgb Hct Seg Neutrophils % Lymphocytes % Absolute Neutrophils Sodium Potassium Carbon Dioxide Anion Gap Glucose 122 H Lactic Acid ALT Creatine Kinase CK-MB (CK-2) Urine Protein Urine Glucose (UA) Urine Ketones Urine Blood Procedures - Laceration/Wound Repair Left forehead Wound length (cm): 5.5 Wound's Depth, Shape: Linear, Flap Laceration pre-procedure: Chloraprep applied, Shur-Clens applied Anesthetic type: Other - L.E.T Wound explored: Clean Wound Repaired With: Dermabond Layer Closure?: No Post-procedure NV exam normal: Yes Complications: No <FATOU MELENDEZ - Last Filed: 03/30/18 00:14> Discharge <LINETTE KATZ - Last Filed: 03/29/18 23:46> <FATOU MELENDEZ - Last Filed: 03/30/18 00:14> - Discharge Clinical Impression: Seizure, Seizure disorder as sequela of cerebrovascular accident Condition: Stable Disposition: HOME, SELF-CARE Additional Instructions: Please follow-up with your neurologist as soon as possible since you had 3 seizures today. We have collected a Keppra level however this will not be back for several days. Dr. Oleary can follow-up with this as an outpatient. Please return to the emergency department for any new or concerning symptoms. Referrals: HARDEEP MCLEAN MD [Primary Care Provider] - Follow up as needed Scribe Attestation: 03/30/18 00:10 I personally performed the services described in the documentation, reviewed and edited the documentation which was dictated to the scribe in my presence, and it accurately records my words and actions. (FATOU MELENDEZ) Scribe Documentation - Scribe Written by Scribe:: Eleni Porter, 03/29/2018 19:19 acting as scribe for :: Megha <LINETTE KATZ - Last Filed: 03/29/18 23:46>
[2018-03-29 19:07] LABS: ALANINE AMINOTRANSFERASE 16 U/L (21-72); ALBUMIN 4.8 g/dL (3.5-5.0); ALKALINE PHOSPHATASE 114 U/L (38-126); ASPARTATE AMINO TRANSFERASE 33 U/L (17-59); BILIRUBIN,DIRECT 0.3 mg/dL (0.0-0.4); BILIRUBIN,TOTAL 0.8 mg/dL (0.2-1.3); BLOOD UREA NITROGEN 10 mg/dL (7-20); GLUCOSE 210 mg/dL (75-110); POTASSIUM 3.2 mmol/L (3.6-5.0); TOTAL PROTEIN 7.6 g/dL (6.3-8.2)
[2018-03-29 19:08] VITALS: BP 173/67
[2018-03-29 19:14] LABS: CARBON DIOXIDE 14 mmol/L (22-30); CHLORIDE 104 mmol/L (98-107); SODIUM 146.1 mmol/L (137-145)
[2018-03-29 19:17] LABS: ANION GAP 28 (5-19)
[2018-03-29] MEDS ORDERED: NORMAL SALINE 1000 ML 1,000 ML IV ONE (19:21)
[2018-03-29 19:41] LABS: ABSOLUTE BASOPHILS # (AUTO) 0.1 10^3/uL (0.0-0.2); ABSOLUTE LYMPHOCYTES (AUTO) 1.2 10^3/uL (0.5-4.7); ABSOLUTE MONOCYTES (AUTO) 0.5 10^3/uL (0.1-1.4); ABSOLUTE NEUT (AUTO) 12.9 10^3/uL (1.7-8.2); BASOPHILS % (AUTO) 0.5 % (0-2); EOSINOPHILS % (AUTO) 0.2 % (0-6); HEMOGLOBIN 12.5 g/dL (13.5-17.0); LYMPHOCYTES % (AUTO) 7.9 % (13-45); MEAN CORPUSCULAR HEMOGLOBIN 28.6 pg (27.0-33.4); MEAN CORPUSCULAR HGB CONC 33.9 g/dL (32.0-36.0); MEAN CORPUSCULAR VOLUME 84 fl (80-97); MONOCYTES % (AUTO) 3.3 % (3-13); PLATELET COUNT 288 10^3/uL (150-450); RED BLOOD COUNT 4.38 10^6/uL (4.35-5.55); RED CELL DISTRIBUTION WIDTH 13.3 % (11.5-14.0); SEGMENTED NEUTROPHILS % (AUTO) 88.1 % (42-78); TOTAL CELLS COUNTED % (AUTO) 100 %; WHITE BLOOD COUNT 14.6 10^3/uL (4.0-10.5)
[2018-03-29 19:49] LABS: PROTHROMBIN TIME 13.7 SEC (11.4-15.4)
[2018-03-29 19:50] LABS: PARTIAL THROMBOPLASTIN TIME 28.8 SEC (23.5-35.8)
[2018-03-29 20:14] LABS: APPEARANCE,URINE CLEAR; BILIRUBIN,URINE NEGATIVE (NEGATIVE); COLOR,URINE STRAW; GLUCOSE, URINE >=500 mg/dL (NEGATIVE); KETONES,URINE TRACE mg/dL (NEGATIVE); LEUKOCYTE ESTERASE,URINE NEGATIVE (NEGATIVE); NITRITE,URINE NEGATIVE (NEGATIVE); PROTEIN,URINE 30 mg/dL (NEGATIVE); UROBILINOGEN,URINE NEGATIVE mg/dL (<2.0)
[2018-03-29 20:45] LABS: CREATINE KINASE MB 5.59 ng/mL (<4.55)
[2018-03-29 20:46] LABS: TROPONIN I < 0.012 ng/mL
--- NOTE | 2018-03-29 20:47 | RADIOLOGY REPORT (SQ) ---
EXAM DESCRIPTION: CT HEAD WITHOUT COMPLETED DATE/TIME: 03/29/2018 8:31 pm REASON FOR STUDY: on plavix and ASA, hit head, seizing COMPARISON: MRI head 01/27/2018. CT head 08/16/2015 TECHNIQUE: Axial images acquired through the brain without intravenous contrast. Images reviewed wi th bone, brain and subdural windows. Images stored on PACS. All CT scanners at this facility use dose modulation, iterative reconstruction, and/or weight based d osing when appropriate to reduce radiation dose to as low as reasonably achievable (ALARA). [facility]: Dose Right [facility]: CareDose [facility]: Dose Right [facility]: Teradose 4D [facility]: [employer] RADIATION DOSE: CT Rad equipment meets quality standard of care and radiation dose reduction techniq ues were employed. CTDIvol: 55.2 mGy. DLP: 1029 mGy-cm.mGy. LIMITATIONS: Motion artifact. FINDINGS: VENTRICLES: Prominent. CEREBRUM: No mass effect. No hemorrhage. No midline shift. Encephalomalacia at the left parieto-oc cipital and temporal lobes, consistent with remote left ETHNOLOGY PROFESSOR infarct. Areas of low density in the whi te matter most likely due to chronic micro-vascular ischemic change. No evidence for acute territori al infarction. CEREBELLUM: No hemorrhage. No alteration of density. No evidence for acute infarction. EXTRAAXIAL SPACES: Age-related involutional change. No fluid collections. ORBITS AND GLOBE: Symmetrical contour of the globes. CALVARIUM: No depressed fracture. PARANASAL SINUSES: No air-fluid level. SOFT TISSUES: Soft tissue hematoma overlying the left frontal bone. IMPRESSION: 1. No acute intracranial hemorrhage or depressed calvarial fracture. Soft tissue jonathon david overlying the left frontal bone. 2. Chronic microvascular ischemic changes. Remote left ETHNOLOGY PROFESSOR infarct. EVIDENCE OF ACUTE STROKE: NO. TECHNICAL DOCUMENTATION: JOB ID: [id number] Quality ID # [id number]: Final reports with documentation of one or more dose reduction techniques (e.g., Au tomated exposure control, adjustment of the mA and/or kV according to patient size, use of iterative reconstruction technique) 2010 [employer]- All Rights Reserved Reading location - IP/workstation name: [email or web address]
[2018-03-29] MEDS ORDERED: LIDOCAINE 4%/TETRACAINE 0.5%/EPI 0.18% 5 ML TOPICAL SOLN TOP ONE (20:48)
[2018-03-29 23:47] LABS: ANION GAP 14 (5-19); BLOOD UREA NITROGEN 9 mg/dL (7-20); CALCIUM 9.1 mg/dL (8.4-10.2); CHLORIDE 103 mmol/L (98-107); GLUCOSE 122 mg/dL (75-110); POTASSIUM 3.9 mmol/L (3.6-5.0); SODIUM 142.6 mmol/L (137-145)
[2018-03-30] LABS: CARBON DIOXIDE 26 mmol/L (22-30)
== END 2018-03-30 01:12 | disposition home or self-care (01) ==
LOC: ER 18:27
DX: I69.398 Other sequelae of cerebral infarction (principal); G40.909 Epilepsy, unspecified, not intractable, without status epilepticus; Z79.899 Other long term (current) drug therapy; S01.81XA Laceration without foreign body of other part of head, initial encounter; W19.XXXA Unspecified fall, initial encounter; Y92.009 Unspecified place in unspecified non-institutional (private) residence as the place of occurrence of the external cause; D72.829 Elevated white blood cell count, unspecified; D64.9 Anemia, unspecified; I25.10 Atherosclerotic heart disease of native coronary artery without angina pectoris; I10 Essential (primary) hypertension; Z79.02 Long term (current) use of antithrombotics/antiplatelets; Z79.82 Long term (current) use of aspirin; Z88.0 Allergy status to penicillin
CPT/HCPCS: 99285; 96361; 96375; 96365; 36415; 80177; 82553; 82962; 80307; 82550; 85025; 85610; 85730; 80048; 80053; 81001; 84484; 83605; 70450; 12014; J2060; J7030; J1953; J3490